=== PATIENT | female | born 1970 | race Caucasian/White ===

== ENCOUNTER 2016-08-28 05:24 | Inpatient (IN) ==
--- NOTE | 2016-08-20 12:20 | EKG Report ---
Stationary ECG Study [facility] Test Date: 08/20/2016 12:18:31 PM Pat Name: DAVE GARCIA Department: Room: Gender: F Weapons Officer: NENA : 1970 Requested by: Jyothi Antonio Order Number: [id number] Reading MD: FLORENTIN RICHARDSON Intervals [place] Rate: 54 P: -5 FL: 151 QRS: 47 QRSD: 76 T: 61 QT: 432 QTc: 417 Interpretive Statements SINUS BRADYCARDIA Electronically Signed On 08-21-16 06:39:58 CDT by FLORENTIN RICHARDSON [email or web address]
[2016-08-20 12:25] LABS: Basophils # 0.1 10*3/uL (0.0-0.2); Eosinophils # 0.4 10*3/uL (0.0-0.87); Eosinophils % 4.4 % (0.00-10.9); Hematocrit 43.7 VOL% (35.7-47.0); Hemoglobin 14.8 GM/DL (12.0-16.0); Immature Granulocytes % 0.3 %; Immature Granulocytes Absolute 0.02 #; Lymphocytes # 2.7 10*3/uL (1.4-4.0); Lymphocytes % 34.3 % (21.3-54.2); Mean Corpuscular HGB Conc 33.9 GM/DL (32-36); Mean Corpuscular Hemoglobin 32 PG (27-34); Mean Corpuscular Volume 94.4 FL (87-102); Mean Platelet Volume 11.8 FL (9.6-12.0); Monocytes # 0.4 10*3/uL (0.11-0.8); Monocytes % 5.4 % (1.7-12.7); Neutrophils # 4.4 10*3/uL (1.4-7.4); Neutrophils % 54.6 % (38.7-73.9); Platelet Count 221 T/CUMM (130-400); Red Blood Count 4.63 MC/CUMM (3.8-5.5); Red Cell Distribution Width 12.3 % (9.3-17.3)
[2016-08-20 12:44] LABS: Bilirubin,Total 0.5 MG/DL (0.2-1.0); Calcium 8.7 MG/DL (8.5-10.1); Osmolality,Calculated 278.3 MOS/KG (273-304); Potassium 4.4 MMOL/L (3.5-5.1); Total Protein 7.2 G/DL (6.4-8.3)
[2016-08-28] MEDS ORDERED: ceFAZolin 2,000 MG in PREMIX 1 EACH IV ONE (06:00)
[2016-08-28] MEDS ORDERED: FAMOTIDINE 20 MG TABLET PO ONE ×2 (06:00→06:11)
[2016-08-28] MEDS ORDERED: LORazepam 1 MG TABLET PO ONE ×2 (06:00→06:11)
[2016-08-28] MEDS ORDERED: LACTATED RINGERS 1,000 ML IV SCH (06:30)
[2016-08-28] MEDS ORDERED: FAMOTIDINE 20 MG TABLET ONE (06:37)
[2016-08-28] MEDS ORDERED: LORazepam 1 MG TABLET ONE (06:37)
--- NOTE | 2016-08-28 07:18 | History and Physical Update ---
History and Physical Update - History and Physical H&P was reviewed, the patient examined and there: are no changes in the patients condition since last H&P was completed.
[2016-08-28] MEDS ORDERED: PROPOFOL 200 MG/20 ML VIAL IV ONE (09:34)
[2016-08-28] MEDS ORDERED: SEVOFLURANE 1 UNIT/15 MINUTE INH ONE (09:34)
[2016-08-28] MEDS ORDERED: fentaNYL 100 MCG/2 ML VIAL ONE (09:34)
[2016-08-28] MEDS ORDERED: ROCURONIUM 100 MG/10 ML VIAL IV ONE (09:35)
[2016-08-28] MEDS ORDERED: DEXAMETHASONE 10 MG/1 ML VIAL ONE (09:35)
[2016-08-28] MEDS ORDERED: LACTATED RINGERS 1,000 ML IV ONE (09:35)
[2016-08-28] MEDS ORDERED: GLYCOPYRROLATE 0.4 MG/2 ML VIAL ONE (09:35)
[2016-08-28] MEDS ORDERED: NEOSTIGMINE 10 MG/10 ML VIAL ONE (09:35)
[2016-08-28] MEDS ORDERED: ACETAMINOPHEN 1,000 MG/100 ML VIAL IV ONE (09:35)
[2016-08-28] MEDS ORDERED: ONDANSETRON 4 MG/2 ML VIAL ONE (09:35)
[2016-08-28] MEDS ORDERED: MIDAZOLAM 2 MG/2 ML VIAL ONE (09:35)
[2016-08-28 09:41] LABS: Apearance,Urine CLEAR (Clear); Bilirubin,Urine Negative (Negative); Blood, Urine Negative (Negative); Glucose,Urine (UA) Negative (Negative); Ketones,Urine Negative (Negative); Mucus,Urine Occasional /LPF (Occasional); Nitrite,Urine Negative (Negative); Protein,Urine Negative; Squamous Epithelial Cell,Urine Occasional /HPF (0-10); Urine Color Straw (Yellow); Urine Specific Gravity 1.004 (1.001-1.035); Urine Urobilinogen < 2.0 EU/DL (0.2-1.0); WBC,Urine <1 /HPF (0-6)
--- NOTE | 2016-08-28 09:51 | Operative Note ---
Date of procedure: 08/28/16 Pre-op diagnosis: pelvic pain, menorrhagia Post-op diagnosis: same Procedure: KELI/BSO Findings: Uterus retroflexed, bilateral tubes interrupted by prior surgical tubal ligation. both ovaries look within normal limits cervix large contour The procedure was as follows the patient was consented for an open laparotomy with a total abdominal hysterectomy with bilateral salpingo-oophorectomy risk benefits alternatives and complications were reviewed with the patient the patient was amenable to the procedure. The patient was thus taken back to the operating room where general anesthesia was found be adequate and the patient was prepped and draped in the usual sterile fashion and a Ramirez catheter was placed as well as SCD hose. A Pfannenstiel skin incision was then made with a scalpel and carried out to the underlying fascia the fascia was incised in the midline and extended laterally with Tanner scissors. The fascial incision was dissected off the rectus muscle superiorly and inferiorly and the rectus muscle was then divided in the midline the peritoneum identified and entered sharply with Metzenbaum scissors and extended superiorly and inferiorly. The O'Erich-O 'Good retractor was carefully placed into the abdominal incision with side flaps carefully placed and a bladder blade was placed and the bowel was packed and then a bowel retractor was carefully inserted in order to get a good visualization of the uterus. As mentioned above the uterus was retroflexed and using Johana clamps the Johana's were placed on either side of the cornea to help elevate the uterus. The round ligaments on either side were grasped suture- ligated and cut. The anterior leads of the broad ligament as well as the posterior on either side extended anteriorly to dissect the bladder. At this point ovaries were to lateral to the ovaries get them at a later time. So the uterine ovarian ligament isolated on either a heating clamp was placed through it and suture ligated using 0 Vicryl. The uterine arteries on either side were skeletonized clamped and suture ligated and hemostasis was assured. The lower uterine segment was noted to be free of the bladder using serial straight options the cardinal ligaments were clamped cut and suture ligated again using 0 Vicryl. The uterosacral ligaments were clamped on either side using a curved Deann cut and suture ligated. Due to the retro-flexed uterus was somewhat difficult to get behind the cervix about half centimeter of vagina posteriorly was amputated together with the cervix. The entire uterus and cervix and approximately half a centimeter of vaginal mucosa was excised. The vaginal cuff was then reapproximated using 0 Vicryl in a running fashion and transfixed to either side of the uterosacral ligaments to help with support. Attention was then turned to the ovarian ligaments first the left infundibulopelvic ligament was grasped with a Sissy suture ligated and then the right side was cut using the LigaSure device. Hemostasis was assured. Surgicel was placed over the vaginal cuff and Interceed was also placed over the adhesions after copious irrigation was sponge lap and instrument counts were correct after all the instruments laps were removed from the abdomen. The peritoneum was reapproximated using 3-0 Vicryl fashion the muscle was reapproximated using 3-0 Vicryl running fashion and the fascia was reapproximated using 0 Vicryl in a running fashion starting at the time the subcutaneous fat and the skin was reapproximated using 3-0 Monocryl subcuticular fashion. The patient pt went to the [facility] recovery room in stable condition. Anesthesia: GETA Surgeon / Physician: Jyothi Mancera Estimated blood loss: other (75) IV fluids: 1,900 Urine output: 600 (clear) Specimens: other (uterus/tubes/ovaries) Condition: stable Results - Labs CBC & BMP: 08/28/16 16:33 08/20/16 12:06 Discharge Plan - Discharge Medications No Action Modafinil [Provigil] 200 mg PO DAILY - Follow Up or Referral - Forms/Instructions
[2016-08-28] MEDS ORDERED: MEPERIDINE 25 MG/1 ML VIAL ONE (10:02)
[2016-08-28] MEDS ORDERED: MEPERIDINE 25 MG/1 ML VIAL IV PRN (10:04)
[2016-08-28] MEDS ORDERED: HYDROmorphone 2 MG/1 ML VIAL IV PRN (11:06)
[2016-08-28] MEDS ORDERED: MAGNESIUM HYDROXIDE SUSP 30 ML UDCUP PO PRN (12:41)
[2016-08-28] MEDS ORDERED: BENZOCAINE/MENTHOL LOZENGE 18/BOX PO PRN (12:41)
[2016-08-28] MEDS ORDERED: BISACODYL 10 MG SUPP RECTAL PRN (12:41)
[2016-08-28] MEDS ORDERED: ONDANSETRON 4 MG/2 ML VIAL IV PRN (12:41)
[2016-08-28] MEDS ORDERED: ACETAMINOPHEN 325 MG TABLET PO PRN (12:41)
[2016-08-28] MEDS ORDERED: NALOXONE 0.4 MG/ML VIAL IV PRN (12:55)
[2016-08-28] MEDS ORDERED: HYDROmorphone PCA 30 MG/30 ML SYRINGE IV SCH (13:00)
[2016-08-28 16:47] LABS: Hemoglobin 13.4 GM/DL (12.0-16.0)
[2016-08-28] MEDS: LACTATED RINGERS 1,000 ML IV SCH (18:27)
[2016-08-29] MEDS: LACTATED RINGERS 1,000 ML IV SCH (04:31)
[2016-08-29 06:33] LABS: Basophils % 0.2 % (0.0-0.8); Eosinophils # 0.1 10*3/uL (0.0-0.87); Hematocrit 36.8 VOL% (35.7-47.0); Hemoglobin 12.4 GM/DL (12.0-16.0); Immature Granulocytes % 0.4 %; Immature Granulocytes Absolute 0.06 #; Lymphocytes # 3.1 10*3/uL (1.4-4.0); Lymphocytes % 21.4 % (21.3-54.2); Mean Corpuscular HGB Conc 33.7 GM/DL (32-36); Mean Corpuscular Hemoglobin 31 PG (27-34); Mean Corpuscular Volume 92.9 FL (87-102); Mean Platelet Volume 11.7 FL (9.6-12.0); Monocytes # 0.7 10*3/uL (0.11-0.8); Monocytes % 4.8 % (1.7-12.7); Neutrophils # 10.4 10*3/uL (1.4-7.4); Neutrophils % 72.2 % (38.7-73.9); Platelet Count 205 T/CUMM (130-400); Red Blood Count 3.96 MC/CUMM (3.8-5.5); White Blood Count 14.5 T/CUMM (4-12)
--- NOTE | 2016-08-29 08:55 | Anesthesia ---
Anesthesia Post OP - Post Ansesthetic Evaluation Patient seen in post op: Yes Resp: within normal limits CV: within normal limits Mental: within normal limits Temp: within normal limits Arin-Nr-Hgfrcymtw: within normal limits Nausea and Vomiting: within normal limits Pain: within normal limits
--- NOTE | 2016-08-29 10:37 | Discharge Summary ---
Hospital Course - Hospital Course Hospital Course: The pt was admitted for a KELI/BSO for painful and heavy periods. The surgery was uncomplicated nor was her hospital course. She asked to go home on POD#2. Specialty Discharge - Follow Up or Referrals Follow up with: Jyothi Mancera MD [Physician] - 1 Week (Call the office Thursday and make a 1 week appointment) Discharge Plan - Discharge Data Disposition: Disch To Home/Self Care Condition at Discharge: Stable Discharge Diet: advance to your usual diet Hygiene: may shower Weight Bearing at Discharge: full weight bearing Driving: not until seen by doctor Contact your physician if you experience:: fever over 101, Difficulty voiding, Redness or swelling, Nausea/Vomiting, Shortness of breath, Bleeding, pain uncontrolled by pain medications - Discharge Medications New oxyCODONE/ACETAMINOPHEN 5-325 [Percocet 5-325] 1 - 2 tablet PO Q6H PRN #30 tablet PRN Reason: Abdominal Pain No Action Modafinil [Provigil] 200 mg PO DAILY - Follow Up or Referral Follow Up: Jyothi Mancera MD [Physician] - 1 Week (Call the office Thursday and make a 1 week appointment) - Forms/Instructions Instructions: Oxycodone/Acetaminophen (By mouth), Abdominal Hysterectomy (DC), Acute Wound Care (DC) Exam - Constitutional Vitals: Period Temp Pulse Resp BP Sys/Blakely Pulse Ox Last 24 Hr 97.9 F-99.6 F 57-78 16-20 92-111/50-72 96-99 Discharge Results Labs on day of discharge: Labs from last 24 hours 08/29/16 08/28/16 06:07 16:33 WBC 14.5 H RBC 3.96 Hgb 12.4 13.4 Hct 36.8 40.0 MCV 92.9 MCH 31 MCHC 33.7 RDW 12.0 Plt Count 205 MPV 11.7 Neut % (Auto) 72.2 Lymph % (Auto) 21.4 [place] % (Auto) 4.8 Eos % (Auto) 1.0 Baso % (Auto) 0.2 Neut # (Auto) 10.4 H Lymph # (Auto) 3.1 [place] # (Auto) 0.7 Eos # (Auto) 0.1 Baso # (Auto) 0.0 Immature Gran % 0.4 Nucleated RBC % 0.0 Immature Gran # 0.06 Nucleated RBCs # 0.00 DS: Provider Date of admission: 08/28/16 05:24 Primary care physician: Nichelle Joseph M.D. Attending physician on admission: Jyothi Gurroal- Consults: 08/28/16 12:57 Consult to Pharmacy [CONS] Routine Reason for Pharmacy Consult: Adjust Meds Renal Funct Discharging clinician: Jyothi Gurrola- Expected date of discharge: 08/30/16
--- NOTE | 2016-08-29 10:37 | OB/GYN Progress Note ---
Assessment and Plan (1) Menorrhagia Status: Acute Assessment and plan: POD# 1 s/p KELI/BSO . continue routine post op care. doing well Current Visit: Yes GRAPE PICKER - PN: Subj Interval history: tolerating PO and voiding without difficulty. pain under control. Exam GRAPE PICKER - Constitutional Vitals: Vital Signs Temp Pulse Resp BP Pulse Ox 08/29/16 07:17 97.9 F 57 L 18 99/59 98 08/29/16 04:00 98.2 F 76 18 92/60 99 08/29/16 00:00 99.6 F 74 18 93/50 99 08/28/16 20:00 99.0 F 65 18 97/64 99 08/28/16 16:00 97.9 F 67 20 106/70 96 08/28/16 13:30 65 18 107/72 97 08/28/16 12:30 71 16 105/67 97 08/28/16 11:30 70 16 108/69 97 08/28/16 11:00 78 16 111/70 97 General appearance: normal weight, no acute distress - Respiratory Respiratory exam: Absent: accessory muscle use - Cardiovascular Cardiovascular exam: Present: regular rate and rhythm - GI/Abdominal GI/Abdominal exam: Present: hypoactive bowel sounds, soft. Absent: distended, guarding, rebound - Extremities Exam Extremities exam: Absent: calf tenderness - Neurological Exam Neurological exam: Present: alert, oriented X3 - Psychiatric Psychiatric exam: Present: normal affect Results - Labs CBC & BMP: 08/29/16 06:07 08/20/16 12:06
--- NOTE | 2016-08-29 12:20 | Pathology Report from [facility] ---
ACCESSION # : [id number] PATIENT NAME : Susie Castaneda ORDERING DR : Jyothi Gray MD CLINICAL HX: Dysmenorrhea POST-OP DX: Same SPECIMEN INFO: Uterus, cervix, bilateral tubes & ovaries GROSS DESCRIPTION: The specimen is received in formalin labeled with the patient 's name and consists of a 133 gram uterus with attached cervix measuring approximately 10.0 x 6.5 x 4.5 cm. The serosa is smooth and pink-archuleta and free of adhesions. The cervix measures 4.6 cm. The external os cervical os measures 1.1 cm. The endocervical canal is patent. The endometrial cavity is hyperemic, archuleta and glistening. The myometrium is spongy and trabeculated. The endometrium has an average thickness of 0.3 cm. No gross abnormalities on sectioning. Received separately in the container are two ovaries with attached fallopian tubes. The first ovary is red-archuleta with a 3.6 x 2.7 cm x up to 1.2 cm. Sectioning reveals hemorrhagic cysts measuring up to 0.9 cm. Additional hemorrhagic cysts are present measuring 5.0 x 0.3 cm x up to 0.5 cm present. The adhesed fimbriated fallopian tube is red-archuleta measuring 4.9 x 0.7 cm. The second ovary is red-archuleta measuring 2.8 x 3.0 x 1.8 cm. Sectioning reveals mostly hemorrhagic cysts measuring up to 1.4 cm. The attached fimbriated fallopian tube is red-archuleta measuring 5.1 x 0.5 cm. Sections submitted: A and B cervix, C and D endomyometrium, E posterior uterine serosa, F first ovary and fallopian tube, G second ovary and fallopian tube. DIAGNOSIS FOR SUSIE CASTANEDA: UTERUS, TUBES AND OVARIES, HYSTERECTOMY: Mild chronic cervicitis with focal squamous metaplasia. Proliferative endometrium. Unremarkable myometrium. Bilateral subcortical follicular cysts of ovary. Unremarkable fallopian tubes. SERVICE DATE: 08/28/2016 REPORT DATE: 08/29/2016 PATHOLOGIST: Zuly Chin III, M.D. MTDD
[2016-08-29] MEDS ORDERED: oxyCODONE/ACETAMINOPHEN 5-325 MG TABLET ONE (13:05)
[2016-08-29] MEDS: oxyCODONE/ACETAMINOPHEN 5-325 MG TABLET PO PRN (13:10)
[2016-08-29] MEDS: IBUPROFEN 800 MG TABLET PO PRN (13:10)
[2016-08-29] MEDS: DOCUSATE SODIUM 100 MG CAPSULE PO PRN (20:00)
[2016-08-30] MEDS: oxyCODONE/ACETAMINOPHEN 5-325 MG TABLET PO PRN ×2 (00:20→07:34)
[2016-08-30] MEDS: IBUPROFEN 800 MG TABLET PO PRN ×2 (00:20→07:34)
[2016-08-30 07:22] VITALS: BP 95/65
[2016-08-30] MEDS: DOCUSATE SODIUM 100 MG CAPSULE PO PRN (07:34)
== END 2016-08-30 09:00 | disposition home or self-care (01) | DRG 743 ==
LOC: N.SDSINP 05:24 → N.OB 10:39
PROVIDERS: ADMIT Obstetrics & Gynecology; ATTEND Obstetrics & Gynecology